=== PATIENT | female | born 1945 | race Caucasian/White ===

== ENCOUNTER 2019-11-03 09:02 | Day surgery (SDC) | payer MEDICARE ==
[2019-11-02 09:29] VITALS: BMI 34.2
[~2019-11-03 09:02] MED LIST: LACTATED RINGERS 1,000 ML IV SCH
[2019-11-03 09:35] VITALS: RESP 18; TEMP 97.8
[2019-11-03] MEDS ORDERED: LACTATED RINGERS 1,000 ML IV ONE (09:35)
[2019-11-03] MEDS ORDERED: LIDOCAINE 1% (10MG/ML) FOR IV START INTRADERMA ONE (09:35)
[2019-11-03] MEDS ORDERED: PROPOFOL 10 MG/ML 20 ML VIAL IV ONE (10:05)
--- NOTE | 2019-11-03 10:18 | P.PCN ---
Date of Procedure: 11/03/19 Procedure(s) Performed: BRIEF HISTORY: Patient is a 74-year-old, pleasant, white female, scheduled for an upper endoscopy for evaluation of severe throat discomfort, throat pain and dysphagia for the last 4 weeks' duration. She was tested for colon cancer and negative. She was treated with antibiotics and is almost black with no help. She was evaluated by ENT and was told symptoms could be related to acid reflux. She was started on his esomeprazole 40 mg daily with no help. Recently was started on fluconazole empirically with no help. She is hence scheduled for an upper endoscopy to evaluate further PROCEDURE PERFORMED: Esophagogastroduodenoscopy with biopsy. PREOPERATIVE DIAGNOSIS: Severe sore throat, throat pain and chronic hoarseness and dysphagia. IV sedation per anesthesia. PROCEDURE: After informed consent was obtained, the patient was brought into the endoscopy unit. IV sedation was administered by Anesthesia under continuous monitoring. Initially the Olympus GIF-140 video endoscope was inserted into the mouth. Esophagus intubated without any difficulty. It was gradually advanced into the stomach and duodenum and carefully examined. The bulb and the second part of the duodenum appeared normal. The bulb of the duodenum just distal to the pylorus there was a 1.5 cm polyp noted that was biopsied. The scope at this time was withdrawn to the stomach, adequately insufflated with air, and upon careful examination, mucosa of the antrum, body, cardia and the fundus appeared normal. The scope was then withdrawn into the esophagus. The GE junction was located at 37 cm from the incisors. Small hiatal hernia noted. The esophagus appeared normal. There were no erosions or ulcerations seen. The proximal cervical esophagus was carefully examined and appeared normal. The vocal cords there quickly visualized and also appeared normal. Pyriform sinuses were normal. The patient tolerated the procedure well. IMPRESSION: 1. Normal-appearing esophagus with no evidence of esophagitis or esophageal stricture. 2. Small hiatal hernia 3. 1.5 cm polyp in the duodenal bulb status post multiple biopsies. RECOMMENDATIONS: The findings of this examination were discussed with the patient as well as a family. She was advised to follow with the biopsy results. She will continue with esomeprazole 40 mg daily. Recommended her to follow with the ENT for evaluation of of chronic hoarseness. She was advised to resume Xarelto tomorrow. Follow up in office in 4 weeks
[2019-11-03 10:23] VITALS: PULSE 72
[2019-11-03 10:41] VITALS: BP 130/70
== END 2019-11-03 11:03 | disposition home or self-care (01) ==
LOC: ORWHC2ENDO 09:02
PROVIDERS: ATTEND Internal Medicine Gastroenterology
DX: K31.7 Polyp of stomach and duodenum (principal); K44.9 Diaphragmatic hernia without obstruction or gangrene; J02.9 Acute pharyngitis, unspecified; I25.2 Old myocardial infarction; I11.0 Hypertensive heart disease with heart failure; I50.9 Heart failure, unspecified; E78.5 Hyperlipidemia, unspecified; J45.909 Unspecified asthma, uncomplicated; M19.90 Unspecified osteoarthritis, unspecified site; E66.9 Obesity, unspecified; Z79.01 Long term (current) use of anticoagulants; Z79.82 Long term (current) use of aspirin; Z79.890 Hormone replacement therapy; Z79.899 Other long term (current) drug therapy; Z68.34 Body mass index [BMI] 34.0-34.9, adult
CPT/HCPCS: 88305; 87635; 43239; J2704